=== PATIENT | female | born 1990 | race Caucasian/White ===

== ENCOUNTER 2017-05-05 18:38 | Emergency (ER) | payer OTHER ==
[~2017-05-05] VITALS: Ht 157.5 cm; Wt 54.4 kg
[~2017-05-05 18:38] MED LIST: ALBUTEROL17 GM INH; BACTRIM DS TABL1 TAB PO; BENZONATATE PO; BIRTH CONTROL PILL; CLINDAMYCIN HC300 MG PO; ERYTHROMYC3.5 GM OPT OD; IBUPROFEN800 MG PO; KEFLEX500 MG PO; MEDROL DOSEPAK4 MG PO; ORUDIS75 M1 PO; TAMIFLU75 M1 PO; ULTRAM PO; VIBRAMYCIN100 M1 PO; VICODIN 5/500 T1 TAB PO; ZOLOFT
== END 2017-05-05 19:08 | disposition left against medical advice (07) ==
LOC: CED 18:38
DX: Z53.21 Procedure and treatment not carried out due to patient leaving prior to being seen by health care provider (principal)